=== PATIENT | female | born 1990 | race Caucasian/White ===

== ENCOUNTER 2017-11-21 03:56 | Emergency (ER) | payer MEDICAID, OTHER ==
[2017-11-21] MEDS ORDERED: LIDOCAINE/PRILOCAINE 2.5% CREAM 5 GM TUBE TOP STA (04:07)
--- NOTE | 2017-11-21 05:15 | ED Physician Documentation ---
PD HPI SKIN - Stated complaint Stated Complaint: BOIL LT BUTTOCK - Chief complaint Chief Complaint: Wound - History obtained from History obtained from: Patient - History of Present Illness Timing - onset: How many days ago (4) Timing - details: Gradual onset, Still present Location: LLE Quality / character: Painful, Raised Associated symptoms: No: Fever Similar symptoms before: Has not had sx before Recently seen: Not recently seen - Additional information Additional information: Patient is a 27 year old female with no significant past medical history who is presenting to the emergency department for abscess on her left buttock. Patient states that it has been going on for the last few days but she has been unable to sleep tonight so she came in for evaluation. 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 Other Past Medical History: Gestational Diabetes - Past Surgical History Past Surgical History: No - Present Medications Home Medications: Ambulatory Orders Medication Instructions Recorded Confirmed Cephalexin [Keflex] 500 mg PO Q6H 7 Days capsule 11/21/17 - Allergies Allergies/Adverse Reactions: Allergies Allergy/AdvReac Type Severity Reaction Status Date / Time No Known Drug Allergies Allergy Verified 11/21/17 04:03 - Social History Does the pt smoke?: No Smoking Status: Never smoker Does the pt drink ETOH?: Yes Does the pt have substance abuse?: No - Immunizations Immunizations are current?: No Immunizations: TDAP >10years/unknown - POLST Patient has POLST: No PD ED PE NORMAL - Vitals Vital signs reviewed: Yes - General General: Alert and oriented X 3 - HEENT HEENT: Atraumatic - Cardiac Cardiac: RRR - Respiratory Respiratory: No respiratory distress - Abdomen Abdomen: Non distended - Neuro Neuro: Alert and oriented X 3 Eye Opening: Spontaneous - Psych Psych: Normal mood PD ED PE EXPANDED - Derm Derm: Abscess - Extremities Extremities: Left leg (2cm by 3cm area of induration and small central fluctuance) Results - Vitals Vitals: Vital Signs - 24 hr 11/21/17 11/21/17 04:01 06:10 Temperature 36.4 C L 36.4 C L Heart Rate 106 H 86 Respiratory 18 18 Rate Blood Pressure 133/111 H 128/76 O2 Saturation 98 100 Oxygen O2 Source Room air Procedures - Abscess I&D (location) left buttock Preparation: Alcohol Incision: Incised with scalpel Other: Pt tolerated well PD MEDICAL DECISION MAKING - ED course Complexity details: reviewed old records, reviewed results, re-evaluated patient , considered differential, d/w patient ED course: Patient was seen and examined at bedside. emla was placed on the abscess and it was I/D with minimal discharge. patient was prescribed antitiobics and given detailed discharge and follow up instructions. Patient required no further inpatient work up and was stable for discharge with outpatient follow up. Departure - Departure Disposition: Home, Self Care Clinical Impression: Abscess Condition: Good Instructions: ED Abscess IandD Follow-Up: primary,care provider [Other] Prescriptions: Cephalexin [Keflex] 500 mg PO Q6H 7 Days capsule Comments: your symptoms today are being caused by an abscess. You will need to keep the area clean and dry. You should apply warm compresses and take the antibiotic 4 times a day. You can take motrin or tylenol as needed for pain. Discharge Date/Time: 11/21/17 06:15
[2017-11-21 06:36] VITALS: BP 128/76
== END 2017-11-21 06:15 | disposition home or self-care (01) ==
LOC: ED 03:56
DX: L02.31 Cutaneous abscess of buttock (principal)
CPT/HCPCS: 10060; 99283; J3490

== ENCOUNTER 2021-05-16 22:41 | Emergency (ER) | payer MEDICAID ==
--- NOTE | 2021-05-17 00:25 | ED Physician Documentation ---
PD HPI UPPER EXT INJURY - Stated complaint Stated Complaint: LT PINKY LAC - Chief complaint Chief Complaint: Laceration - History obtained from History obtained from: Patient - History of Present Illness Location: Left, Finger Type of injury: Laceration Where injury occurred: Work Timing - onset: Enter time (18:00) Timing - details: Abrupt onset Associated symptoms: No: Weakness, Numbness Contributing factors: No: Anticoagulated Similar symptoms before: Has not had sx before - Additonal information Additional information: at approximately 6 PM tonight while at work, sustained left 5th finger injury, cut tip of finger with serrated knife. patient is right hand dominant. Does not remember last tetanus shot but thinks it has been over 10 years. 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 03/17/20 Ophthalmic Ointment] - Allergies Allergies/Adverse Reactions: Allergies Allergy/AdvReac Type Severity Reaction Status Date / Time No Known Drug Allergies Allergy Verified 05/16/21 22:46 - Social History Does the pt smoke?: No Smoking Status: Never smoker Does the pt drink ETOH?: Yes Does the pt have substance abuse?: No - Immunizations Immunizations are current?: No Immunizations: TDAP >10years/unknown - POLST Patient has POLST: No PD ED PE NORMAL - Vitals Vital signs reviewed: Yes - General General: Alert and oriented X 3, No acute distress, Well developed/nourished - Extremities Extremities: Normal ROM s pain, No edema - Neuro Neuro: No motor deficit, No sensory deficit PD ED PE EXPANDED - Extremities Extremities: Other (left fifth finger: tip is avulsed without bone exposure nor involvement of nail. There is slow oozing from middle of the avulsed area. The avulsed area is approximately 3-4 mm diameter. FROM flexion and extension) Results - Vitals Vitals: Oxygen O2 Source Room air PD MEDICAL DECISION MAKING - ED course Complexity details: considered differential, d/w patient ED course: avulsion of tip of left fifth finger without involvement of bone nor nail. Bleeding controlled with pressure. Gelfoam placed followed by dressing. Departure - Departure Disposition: 01 Home, Self Care Clinical Impression: Avulsion of finger tip Condition: Good Instructions: ED Avulsion Dermal Comments: The fingertip injury should slowly heal over the next few weeks. Keep the dressing in place for the first 4-5 days, then remove it and wash the wound gently with soap and water twice per day, replacing a new dressing each time. Apply an antibiotic ointment such as bacitracin to the area before replacing the dressing. Follow up with your primary care provider in 5-7 days for recheck of the wound Discharge Date/Time: 05/17/21 00:50
[2021-05-17] MEDS ORDERED: TETANUS/DIPHTHERIA/PERTUSSIS 0.5 ML SYRINGE IM ONE (00:38)
[2021-05-17 00:51] VITALS: BP 141/84
== END 2021-05-17 00:50 | disposition home or self-care (01) ==
LOC: ED 22:41
DX: S61.217A Laceration without foreign body of left little finger without damage to nail, initial encounter (principal); W26.0XXA Contact with knife, initial encounter; Y99.0 Civilian activity done for income or pay; Z23 Encounter for immunization
CPT/HCPCS: 90471; 99282; 99283

== ENCOUNTER 2022-08-14 12:30 | Outpatient (CLI) | payer MEDICAID | END 2022-08-14 23:59 | disposition home or self-care (01) | LOC: LAB 12:30 | PROVIDERS: ATTEND Physician Assistant Medical | DX: J02.9 Acute pharyngitis, unspecified (principal) | CPT/HCPCS: 87070 ==

== ENCOUNTER 2023-02-09 07:00 | Outpatient (CLI) | payer MEDICAID ==
--- NOTE | 2023-02-10 00:02 | XRAY Report ---
PROCEDURE: Chest 2 View X-Ray INDICATIONS: ATYPICAL CHEST PAIN TECHNIQUE: 2 views of the chest were acquired. COMPARISON: None. FINDINGS: Surgical changes and devices: None. Lungs and pleura: An incomplete inspiratory result is noted, with low lung volumes and crowding of t he vascular markings. No focal infiltrates are seen. No large pneumothorax or large pleural effusion can be seen. Mediastinum: Mediastinal contours appear normal. Heart size is normal. Bones and chest wall: No suspicious bony lesions. Overlying soft tissues appear unremarkable. IMPRESSION: Low lung volumes, without a focal plain film abnormality seen. Reviewed by: Diego Louise MD on 02/09/2023 11:01 PM [facility] Approved by: Diego Louise MD on 02/09/2023 11:01 PM [facility] Station ID: [id number]
== END 2023-02-09 23:59 | disposition home or self-care (01) ==
LOC: DI.S 07:00
PROVIDERS: ATTEND Registered Nurse
DX: R07.89 Other chest pain (principal)

== ENCOUNTER 2023-02-09 20:09 | Outpatient (CLI) | payer MEDICAID ==
[2023-02-09 20:26] LABS: BASOPHILS # (AUTO) 0.1 10^3/uL (0.0-0.1); BASOPHILS % (AUTO) 0.6 %; EOSINOPHILS # (AUTO) 0.1 10^3/uL (0.0-0.7); EOSINOPHILS % (AUTO) 0.6 %; HCT - HEMATOCRIT 39.5 % (37.0-47.0); HGB - HEMOGLOBIN 12.6 g/dL (12.0-16.0); LYMPHOCYTES # (AUTO) 1.1 10^3/uL (1.5-3.5); LYMPHOCYTES % (AUTO) 14.2 %; MEAN CORPUSCULAR HEMOGLOBIN 27.5 pg (27.0-31.0); MEAN CORPUSCULAR HGB CONC 31.9 g/dL (32.0-36.0); MEAN CORPUSCULAR VOLUME 86.2 fL (81.0-99.0); MEAN PLATELET VOLUME 8.5 fL (7.9-10.8); MONOCYTES # (AUTO) 0.6 10^3/uL (0.0-1.0); MONOCYTES % (AUTO) 7.6 %; NEUTROPHILS % (AUTO) 76.6 %; PLT - PLATELET COUNT 363 10^3/uL (130-450); RED BLOOD COUNT 4.58 10^6/uL (4.20-5.40); RED CELL DISTRIBUTION WIDTH 13.2 % (12.0-15.0); WHITE BLOOD COUNT 7.9 x10^3/uL (4.8-10.8)
[2023-02-09 20:39] LABS: ALBUMIN 4.2 g/dL (3.2-5.5); ALBUMIN/GLOBULIN RATIO 1.4 (1.0-2.2); BILIRUBIN,TOTAL 0.4 mg/dL (0.2-1.0); CALCIUM 9.1 mg/dL (8.5-10.3); CREATININE 0.7 mg/dL (0.6-1.3); CRP - C-REACTIVE PROTEIN 3.7 mg/dL (<0.5); POTASSIUM 3.8 mmol/L (3.5-4.5); TOTAL PROTEIN 7.2 g/dL (6.4-8.9)
== END 2023-02-09 20:10 | disposition home or self-care (01) ==
LOC: LAB 20:09
PROVIDERS: ATTEND Registered Nurse
DX: R10.11 Right upper quadrant pain (principal); R07.89 Other chest pain
CPT/HCPCS: 36415; 80053; 83690; 84484; 85025; 86140